=== PATIENT | female | born 1945 | race Caucasian/White ===

== ENCOUNTER 2017-04-20 05:49 | Observation (INO) | payer MEDICARE ==
[~2017-04-20] VITALS: Ht 172.7 cm; Wt 59.0 kg
--- NOTE | 2017-04-20 08:18 | NUR ---
INTRODUCED MYSELF TO PATIENT AND , TOOK VITAL SIGNS, BROUGHT BEVERAGES.
--- NOTE | 2017-04-20 08:35 | NUR ---
PT BROUGHT FROM ED VIA STRETCHER BY CLIENT PARTNER JIM. DARLING ADMIT COMPLETE. PT UP TO BATHROOM SBA. NO DIZZINESS OR SOB.
--- NOTE | 2017-04-20 09:15 | NUR ---
ASSESSED ORTHOSTATICS AT BEDSIDE. RESULTS NEGATIVE. TOLERATED WELL WITH NO DIZZINESS OR LIGHTHEADEDNESS REPORTED.
--- NOTE | 2017-04-20 09:58 | NUR ---
PT STATES SHE HAS NO NEEDS AT THIS TIME. PT INFORMED TO CALL IF SHE THINKS OF ANYTHING. CALL LIGHT IS IN REACH.
--- NOTE | 2017-04-20 11:16 | NUR ---
PT REPORTS EATING A FEW BITES OF JELLO MADE HER FEEL NAUSEOUS. HAS TOLERATED DRINKING WATER. PROTONIX ADMINISTERED. PT RESTING IN BED. APPEARS COMFORTABLE. DENIES OTHER NEEDS AT THIS TIME. WOULD LIKE TO NAP.
--- NOTE | 2017-04-20 12:20 | NUR ---
PT HELPED TO BATHROOM. REMINDED TO USE CALL LIGHT. BACK TO BED. CALL LIGHT IN REACH.
--- NOTE | 2017-04-20 13:25 | NUR ---
PT GIVEN POTASSIUM PER ORDER. REFILLED WATER. REMINDED TO USE CALL LIGHT. ENCOURAGED TO EAT AND DRINK FLUIDS. DENIES DIZZINESS OR SOB WHEN UP TO BATHROOM.
--- NOTE | 2017-04-20 15:04 | NUR ---
ASSESSMENT COMPLETE. PT LAYING IN BED. APPEARS COMFORTABLE. DENIES NEEDS AT THIS TIME. ENCOURAGED INTAKE. TELE #6. SINUS RHYTHM BUT CONSISTENTLY GOES INTO SINUS TRESA W/ HR LOW 40. UNSYMPTOMATIC. DR MENA AWARE.
--- NOTE | 2017-04-20 16:03 | NUR ---
PT UP TO BATHROOM. TOLERATED WELL. REPORTED NO DIZZINESS. ENCOURAGED TO EAT. ORDERED FRUIT CUP. PT IS ANXIOUS TO GO HOME.
--- NOTE | 2017-04-20 16:23 | NUR ---
ASSISTED PT TO BATHROOM. WALKS INDEPENDENTLY WO DIZZINESS. STILL HOPING TO BE DISCHARGED TONIGHT. ORDERED A PLATE OF FOOD FOR HER TO TRY ADVANCING HER DIET.
--- NOTE | 2017-04-20 18:19 | NUR ---
PT ON TELE #6, SINUS TRESA 38-65. AWARE. NAUSEA RESOLVED. TOLERATED DINNER. DC HOME IN MORNING. NO SYNCOPE SINCE ADMISSION.
--- NOTE | 2017-04-20 19:46 | NUR ---
PT IS AWAKE IN BED, IN ROOM. IN ROOM FOR REPORT, PT EAGER TO DC TOMORROW. PT DENIES FURTHER REQUESTS AT THIS TIME.
--- NOTE | 2017-04-20 20:01 | NUR ---
HELPED PT TO RESTROOM TO GET READY FOR BED, PT DENIES PAIN. FRESH WATER AT BEDSIDE. PT DENIES FURTHER NEEDS.
[2017-04-20] MEDS ORDERED: FAMOTIDINE20 MG PO (20:06)
[2017-04-20] MEDS ORDERED: ONDANSETRON HCL4 MG PO (20:06)
--- NOTE | 2017-04-20 22:20 | NUR ---
IN PT ROOM, HELPED HER TO RESTROOM. PT DENIES FURTHER NEEDS. CALL LIGHT IS WITHIN REACH.
--- NOTE | 2017-04-21 00:01 | EKG ---
[facility] [address] [facility] [place] [address] Signed Normal sinus rhythm Possible Left atrial enlargement Incomplete right bundle branch block Anterior infarct , age undetermined Abnormal ECG No previous ECGs available Confirmed by KIT MENA MD ([id number]) on 04/21/2017 12:01:37 AM Electronically Signed By: KIT MENA MD 04/21/17 0001 PATIENT NAME: PATRICIA CARVALHO Electrocardiogram DATE OF : 45 PHYSICIAN: KIT MENA MD REPORT #: [id number] REPORT IS CONFIDENTIAL AND NOT TO BE RELEASED WITHOUT AUTHORIZATION
--- NOTE | 2017-04-21 00:56 | NUR ---
PT IS RESTING WITH EYES CLOSED, RESPIRATIONS EVEN AND NONLABORED. CALL LIGHT IS WITHIN REACH.
--- NOTE | 2017-04-21 01:52 | NUR ---
WOKE PT TO GET VS AND ASSESS. SHE STATES SHE IS DOING WELL BUT DID NOT LIKE HOW HER STOMACH FELT AFTER TAKING THE PEPCID. PT STATES SHE FEELS GOOD NOW. FRESH WATER AT BEDSIDE, PT DENIES FURTHER NEEDS.
--- NOTE | 2017-04-21 04:34 | NUR ---
PT IS RESTING WITH EYES CLOSED, RESPIRATIONS EVEN AND NONLABORED. CALL LIGHT IS WITHIN REACH.
--- NOTE | 2017-04-21 06:04 | NUR ---
PT SLEPT WELL THROUGH THE NIGHT. PT ON TELE AND HR FLUCTUATED THROUGH THE NIGHT BUT PT WAS ASYMPTOMATIC. SHE STATES SHE FEELS GOOD AND IS READY TO GO HOME.
--- NOTE | 2017-04-21 06:18 | NUR ---
HELPED PT BACK TO BED AFTER USING RESTROOM. CHANGED PT'S GOWN PER HER REQUEST. SHE MARY FURTHER NEEDS AT THIS TIME OTHER THAN NOT TO BE WOKEN FOR SHIFT CHANGE IF SHE IS ASLEEP.
--- NOTE | 2017-04-21 06:43 | NUR ---
IV BAG COMPLETE, PT STATES SHE IS TOLERATING FLUIDS WELL AND HAS NO NAUSEA. SL IV AT THIS TIME. PT DOES NOT WANT ANY MORE FLUIDS.
--- NOTE | 2017-04-21 08:00 | NUR ---
PATIENT UP AMBULATING IN HALLWAY WITH RN.
--- NOTE | 2017-04-21 08:10 | NUR ---
PATIENT UP, ORDERED BREAKFAST. NO COMPLAINTS OF PAIN. PATIENT STATES, "I WANT TO GO HOME TODAY". FULL BODY ASSESMENT DONE. LUNG SOUNDS CLEAR. DENIES ANY DIZZINESS WITH AMBULATION, NO COMPLAINTS OF PAIN. DICUSSED POC FOR DAY.
--- NOTE | 2017-04-21 08:45 | NUR ---
SPOKE WITH PATIENT IN ROOM. DISCUSSED THAT SHE HAS NO PCP. SHE STATES HER ALSO NEEDS A PCP. SHE STATES DR MENA GAVE HER HIS CARD AND SHE IS GOING TO TRY TO GET IN THERE. SHE STATES THEY BOTH SAW DR TURNER ONCE OR TWICE MANY YEARS AGO, OVER 10 YEARS AGO SHE THINKS. DISCUSSED IMPORTANCE OF HAVING A PCP, EVEN IF SHE IS FAIRLY HEALTHY. SHE STATES UNDERSTANDING. SHE STATES SHE WILL DO THE FOLLOW UP APPT THERE AND TALK WITH THE OFFICE ABOUT GETTING SET UP PATIENTS FROM NOW ON. NO OTHER BARRIER KNOWN FOR DISCHARGE HOME AT THIS TIME.
--- NOTE | 2017-04-21 09:58 | NUR ---
DR. MENA TO ROOM, ORDER TO DISCHARGE. PROVIDED PATIENT WITH DISCHARGE INSTRUCTIONS. ANSWERED QUESTIONS AND CONCERNS. BEEF SKINNER REMOVED IV TO L AC. COBAN PLACED OVER ARM. PATIENT DENIES NEED FOR ZOFRAN, BUT PROVIDED PATIENT WITH SCRIPT TO HAVE IN HAND. DISCUSSED FOLLOW UP APPOINTMENT WITH DR. MENA, AND LAB WORK NEEDING TO BE DONE POST DISCHARGE. PATIENT DISCUSSED AND REPEATED EDUCATION IN REGARDS TO GASTRITIS, AND DISCUSSED SIGNS OF ULCER. ENCOURAGED PATIENT TO CONTINUE TO EAT BLAND DIET FOR AWHILE, AND DISCUSSED FOODS THAT WOULD BE IRRITATING TO DIGEST. PATIENT VERBALIZED UNDERSTANDING.
== END 2017-04-21 09:55 | disposition home or self-care (01) ==
LOC: ED 05:49 → MS 05:51
PROVIDERS: ADMIT Internal Medicine
DX: E86.0 Dehydration (principal); I95.1 Orthostatic hypotension; D69.6 Thrombocytopenia, unspecified; A08.4 Viral intestinal infection, unspecified; K29.60 Other gastritis without bleeding
CPT/HCPCS: 36415; 80053; 81001; 83690; 83735; 84484; 85025; 85049; 93005; 93010; 96361; 96374; 96375; 99285; G0378; J2405; J2765; J7030

== ENCOUNTER 2024-09-30 16:27 | Emergency (ER) | payer MEDICARE ==
[~2024-09-30] VITALS: Ht 172.7 cm; Wt 52.6 kg
[~2024-09-30 16:27] MED LIST: FAMOTIDINE20 MG PO; ONDANSETRON HCL4 MG PO
[2024-09-30] MEDS ORDERED: SODIUM CHLORIDE 0.9% 1,000 ML IV PRN (18:00)
[2024-09-30 18:15] LABS: BASOPHILS 0.6 % (0.1-1.2); EOSINOPHILS 0.6 % (0.7-5.8); LYMPHOCYTES 8.5 % (19.3-51.7); MCH 28.4 PG (25.6-32.2); MCHC 32.8 g/dL (32.2-35.5); MCV 86.9 fL (79.4-94.8); MONOCYTES 8.0 % (4.7-12.5); NEUTROPHILS 82.0 % (34.0-71.1); RBC 4.64 M/uL (3.93-5.22)
[2024-09-30 18:27] LABS: BLOOD/HGB, URINE MODERATE (Negative); KETONE, URINE SMALL (Negative); LEUK ESTERASE, URINE NEGATIVE (negative); NITRITE, URINE NEGATIVE (negative)
[2024-09-30 18:28] LABS: ALT (SGPT) 18.0 U/L (14-59); AST (SGOT) 15.0 U/L (15-37); GLOMERULAR FILTRATION RATE,EST 90.0 mL/min (>60); PROTEIN, TOTAL 7.5 g/dL (6.4-8.2); UREA NITROGEN 14.0 mg/dL (7-18)
[2024-09-30 18:33] LABS: BACTERIA, URINE NONE SEEN /hpf (negative); CRYSTALS, URINE NONE SEEN (0-1+); EPITHELIAL CELLS, URINE SQUAMOUS 1+ /lpf (0-1+)
[2024-09-30 18:34] LABS: CASTS, URINE NONE SEEN \\lpf; REFLEX CULTURE, URINE No (No)
[2024-09-30] MEDS ORDERED: MACROBID 100 M100 MG PO (19:15)
[2024-09-30 19:37] VITALS: BP 161/80
--- NOTE | 2024-10-02 10:01 | EKG ---
[facility] [address] [facility] [place] [address] Signed Normal sinus rhythm Possible Left atrial enlargement Left axis deviation Left ventricular hypertrophy ( R in aVL , [place] product ) Nonspecific ST abnormality Abnormal ECG When compared with ECG of 20-Apr-2017 05:54:[address] abnormality is now present Confirmed by Negrito Hobbs MD ([id number]) on 10/02/2024 10:00:46 AM Electronically Signed By: NEGRITO HOBBS MD 10/02/24 1001 PATIENT NAME: PATRICIA GUZMAN Electrocardiogram DATE OF : 45 PHYSICIAN: NEGRITO HOBBS MD REPORT #: [id number] REPORT IS CONFIDENTIAL AND NOT TO BE RELEASED WITHOUT AUTHORIZATION
== END 2024-09-30 19:38 | disposition home or self-care (01) ==
LOC: ED 16:27
PROVIDERS: Emergency Medicine
DX: N39.0 Urinary tract infection, site not specified (principal); E86.0 Dehydration
CPT/HCPCS: 36415; 80053; 81001; 85025; 87088; 93005; 93010; 96374; 99284-25; J2405; J7030